=== PATIENT | female | born 1985 | race Caucasian/White ===

== ENCOUNTER 2019-09-09 00:44 | Emergency (ER) | payer MEDICAID ==
[~2019-09-09] VITALS: Ht 160 cm; Wt 78.0 kg
[2019-09-09] MEDS ORDERED: IBUPROFEN 600MG TABLET PO ONE (01:15)
[2019-09-09 01:24] VITALS: BP 116/80
== END 2019-09-09 03:03 | disposition home or self-care (01) ==
LOC: ER 00:44
DX: M25.562 Pain in left knee (principal); M25.561 Pain in right knee; Z90.49 Acquired absence of other specified parts of digestive tract; Z98.890 Other specified postprocedural states
CPT/HCPCS: 29505; 73562; 81025; 99283

== ENCOUNTER 2020-05-27 15:09 | Emergency (ER) | payer MEDICAID ==
[~2020-05-27] VITALS: Ht 157.5 cm; Wt 80.0 kg
[2020-05-27] MEDS ORDERED: KETOROLAC 30MG/ML VIAL IV STA (16:57)
[2020-05-27] MEDS ORDERED: SODIUM CHLORIDE 0.9% 1,000 ML IV ONE (17:00)
[2020-05-27 17:19] LABS: BASOPHILS % 0.2 % (0.0-2.0); EOSINOPHILS % 0.5 % (0.0-5.0); HEMATOCRIT. 38.8 % (36.0-48.0); HEMOGLOBIN. 13.4 g/dL (12.0-16.0); LYMPHOCYTES % 25.5 % (20.0-50.0); MEAN CORPUSCULAR VOLUME 89.6 fL (81.0-99.0); MEAN PLATELET VOLUME 9.1 fl (7.4-10.4); MONOCYTES % 5.9 % (2.0-8.0); NEUTROPHILS % 67.9 % (40.0-76.0); PLATELET 296 x1000/uL (130-400); RED BLOOD CELL COUNT 4.33 mill/uL (4.2-5.4); RED CELL DISTRIBUTION WIDTH 13.2 % (11.6-14.6)
[2020-05-27 17:21] LABS: CHLORIDE 105 mEq/L (98-107)
[2020-05-27 17:24] LABS: PROTHROMBIN TIME 10.5 sec (9.6-11.0)
[2020-05-27 17:47] LABS: CLARITY URINE CLOUDY (CLEAR); COLOR URINE YELLOW (YELLOW); KETONES URINE TRACE (NEGATIVE); LEUKOCYTE ESTERASE URINE 1+ (NEGATIVE); NITRITE URINE NEGATIVE (NEGATIVE); OCCULT BLOOD URINE NEGATIVE (NEGATIVE); PROTEIN URINE NEGATIVE (NEGATIVE); SPECIFIC GRAVITY URINE 1.026 (1.005-1.030); UROBILINOGEN URINE 0.2 E.U./dL (0.2-1.0)
[2020-05-27] MEDS ORDERED: POTASSIUM CHLORIDE 20MEQ TABLET SR PO ONE (18:45)
[2020-05-27] MEDS ORDERED: AMOX-494 MT (18:51)
[2020-05-27 19:06] VITALS: BP 112/72
== END 2020-05-27 19:12 | disposition home or self-care (01) ==
LOC: ER 15:09
DX: R55 Syncope and collapse (principal); R51.9 Headache, unspecified; R53.1 Weakness; Z90.49 Acquired absence of other specified parts of digestive tract
CPT/HCPCS: 36415; 70450; 71045; 80053; 81003; 81025; 82962; 85025; 85610; 93005; 96361; 96374; 99285; J1885; J7030

== ENCOUNTER 2021-04-25 12:42 | Emergency (ER) | payer MEDICAID ==
[~2021-04-25] VITALS: Ht 162.6 cm; Wt 83.0 kg
[~2021-04-25 12:42] MED LIST: AMOX-494 MT
[2021-04-25] MEDS ORDERED: KETOROLAC 30MG/ML VIAL IM ONE (13:15)
[2021-04-25 13:36] VITALS: BP 113/71
[2021-04-25 13:46] LABS: CLARITY URINE CLEAR (CLEAR); COLOR URINE YELLOW (YELLOW); KETONES URINE NEGATIVE (NEGATIVE); LEUKOCYTE ESTERASE URINE NEGATIVE (NEGATIVE); NITRITE URINE NEGATIVE (NEGATIVE); OCCULT BLOOD URINE NEGATIVE (NEGATIVE); PROTEIN URINE NEGATIVE (NEGATIVE); SPECIFIC GRAVITY URINE 1.022 (1.005-1.030); UROBILINOGEN URINE 0.2 E.U./dL (0.2-1.0)
[2021-04-25 13:46] LABS: BASOPHILS % 0.1 % (0.0-2.0); HEMATOCRIT. 36.5 % (36.0-48.0); HEMOGLOBIN. 12.7 g/dL (12.0-16.0); LYMPHOCYTES % 28.9 % (20.0-50.0); MEAN CORPUSCULAR HEMOGLOBIN 30.9 pg (28.0-32.0); MEAN CORPUSCULAR VOLUME 88.9 fL (81.0-99.0); MEAN PLATELET VOLUME 8.4 fl (7.4-10.4); MONOCYTES % 7.1 % (2.0-8.0); NEUTROPHILS % 60.9 % (40.0-76.0); PLATELET 247 x1000/uL (130-400); RED CELL DISTRIBUTION WIDTH 13.7 % (11.6-14.6)
[2021-04-25 14:07] LABS: CHLORIDE 112 mEq/L (98-107)
[2021-04-25] MEDS ORDERED: NITR-87 MT (15:25)
[2021-04-25] MEDS ORDERED: NAPR-1176 MT (15:25)
== END 2021-04-25 15:35 | disposition home or self-care (01) ==
LOC: ER 14:37
DX: S20.212A Contusion of left front wall of thorax, initial encounter (principal); X50.0XXA Overexertion from strenuous movement or load, initial encounter; Y93.89 Activity, other specified; Y92.89 Other specified places as the place of occurrence of the external cause
CPT/HCPCS: 36415; 71045; 74176; 80053; 81003; 81025; 83690; 85025; 96372; 99285; J1885